=== PATIENT | female | born 1995 | race Two or more races ===

== ENCOUNTER 2024-12-17 05:50 | Inpatient (IN) | payer OTHER ==
[2024-12-17 06:28] VITALS: BMI 32.6
[2024-12-17] MEDS: DEXTROSE 5%-LACTATED RINGERS 1,000 ML IV SCH (07:30)
[2024-12-17] MEDS ORDERED: morphine SULFATE 4 MG/ML VIAL ONE (08:25)
[2024-12-17] MEDS: morphine SULFATE 4 MG/ML VIAL IVPUSH ONE (08:29)
[2024-12-17] MEDS: SODIUM CHLORIDE 1,000 ML IV STA (08:45)
[2024-12-17] MEDS: CITRIC ACID/SODIUM CITRATE 30 ML UNIT-DOSE CUP PO ONE (10:12)
[2024-12-17] MEDS ORDERED: morphine SULFATE/PF 1 MG/2 ML (2cc Syringe - QUVA) ONE (10:47)
[2024-12-17] MEDS ORDERED: FENTANYL CITRATE/PF 50 MCG/ML VIAL ONE (10:47)
[2024-12-17] MEDS ORDERED: KETOROLAC TROMETHAMINE 30 MG/1 ML VIAL ONE (12:20)
[2024-12-17] MEDS ORDERED: ONDANSETRON 4 MG/2 ML VIAL ONE (12:20)
[2024-12-17] MEDS ORDERED: DEXAMETHASONE SOD PHOSPHATE 4 MG/1 ML VIAL ONE (12:20)
[2024-12-17] MEDS ORDERED: ceFAZolin SODIUM 1 GM VIAL ONE (12:20)
[2024-12-17] MEDS: OXYTOCIN 20 UNITS in 0.9% NS 20 UNIT/1,000 ML INFUS.BAG IV SCH (12:30)
[2024-12-17] MEDS: OXYTOCIN 10 UNITS/ML VIAL IM ONE (13:40)
[2024-12-17] MEDS ORDERED: OXYTOCIN 10 UNITS/ML VIAL ONE (13:41)
[2024-12-17 13:44] LABS: CORD BASE EXCESS -0.5 mmol/L (0-2); CORD HCO3 25.9 mmHg (20-29); CORD PCO2 50.1 mmHg (30-78); CORD pH 7.332 (7.14-7.44)
[2024-12-17 13:50] LABS: CORD BASE EXCESS -3.6 mmol/L (0-2); CORD pH 7.23 (7.14-7.44)
[2024-12-17 19:10] VITALS: RESP 18
[2024-12-18] MEDS ORDERED: oxyCODONE HCL 5 MG TABLET PO PRN (00:31)
[2024-12-18] MEDS: ACETAMINOPHEN 325 MG TABLET (FP) PO PRN (02:26)
[2024-12-18 07:45] LABS: BASO % 0.1 % (0-2.0); EOS % 0.1 % (0-4.5); HEMATOCRIT 27.8 % (32.4-45.2); HEMOGLOBIN 9.3 GM/dL (10.7-15.3); MCHC 33.4 g/dl (32.0-36.0); MEAN CELL VOLUME 86.9 fl (80-96); MEAN PLT VOLUME 7.9 fl (7.5-11.1); MONO % 8.3 % (3.8-10.2); NEUT % 77.5 % (42.8-82.8); PLATELET COUNT 236 10^3/uL (134-434); RDW 15.3 % (11.6-15.6); WHITE BLOOD COUNT 9.4 K/mm3 (4.0-10.0)
[2024-12-18] MEDS: IBUPROFEN 600 MG TABLET (FP) PO PRN (08:46)
[2024-12-18 11:35] LABS: POC NITRAZINE NEG
[2024-12-18] MEDS: FERROUS SO4 325 MG TABLET (FP) PO SCH (17:33)
[2024-12-19] MEDS: DOCUSATE SODIUM 100 MG CAPSULE (FP) PO PRN (05:50)
[2024-12-19] MEDS: oxyCODONE HCL 5 MG TABLET PO SCH (10:20)
[2024-12-20 07:16] LABS: BASO % 0.3 % (0-2.0); EOS % 1.4 % (0-4.5); HEMATOCRIT 27.1 % (32.4-45.2); HEMOGLOBIN 8.9 GM/dL (10.7-15.3); LYMPH % 32.7 % (8-40); MCH 28.9 pg (25.7-33.7); MCHC 32.8 g/dl (32.0-36.0); MEAN CELL VOLUME 88.1 fl (80-96); MEAN PLT VOLUME 7.5 fl (7.5-11.1); MONO % 8.2 % (3.8-10.2); NEUT % 57.4 % (42.8-82.8); PLATELET COUNT 287 10^3/uL (134-434); RBC 3.08 M/mm3 (3.60-5.2); WHITE BLOOD COUNT 6.5 K/mm3 (4.0-10.0)
[2024-12-20 09:59] VITALS: BP 106/74; PULSE 80; TEMP 98
== END 2024-12-20 13:45 | disposition home or self-care (01) | DRG 540 ==
LOC: JLDR 05:50 → J3W 15:00
PROVIDERS: ADMIT Obstetrics & Gynecology Maternal & Fetal Medicine; ATTEND Obstetrics & Gynecology Maternal & Fetal Medicine
PROC: 10D00Z1 Extraction of Products of Conception, Low, Open Approach (ICD-10-PCS; principal; 2024-12-17)
DX: O34.211 Maternal care for low transverse scar from previous cesarean delivery (principal); N85.8 Other specified noninflammatory disorders of uterus; Z3A.39 39 weeks gestation of pregnancy; Z37.0 Single live birth
CPT/HCPCS: 36415; 36600; 59025; 59409; 81003; 82803; 83986-QW; 85025; 86780; 86850; 86900; 86901; 88307-TC; 94010